=== PATIENT | female | born 1995 | race Caucasian/White ===

== ENCOUNTER 2022-01-31 01:19 | Emergency (ER) | payer SELFPAY ==
[~2022-01-31] VITALS: Ht 160 cm; Wt 90.3 kg
[2022-01-31 01:33] VITALS: BP 125/90
--- NOTE | 2022-01-31 02:51 | NUR ---
PATIENT LEFT WITHOUT BEING SEEN BY DR. Argueta. NO FURTHER CARE PROVIDED FOR PATIENT.
== END 2022-01-31 02:51 | disposition left against medical advice (07) ==
LOC: MED 01:19
DX: R10.9 Unspecified abdominal pain (principal); Z53.21 Procedure and treatment not carried out due to patient leaving prior to being seen by health care provider

== ENCOUNTER 2023-06-14 18:52 | Emergency (ER) | payer MEDICAID ==
[~2023-06-14] VITALS: Ht 170.2 cm; Wt 89.8 kg
[2023-06-14 19:09] VITALS: BP 125/71; PULSE 82; RESP 15; TEMP 98.1; O2SAT 98
[2023-06-14] MEDS ORDERED: ONDANSETRON 4 MG ODT PO ONE (19:50)
[2023-06-14] MEDS ORDERED: KETOROLAC 60 MG/2 ML VIAL IM ONE (19:50)
[2023-06-14] MEDS ORDERED: IBUP-2213 PO (20:29)
[2023-06-14] MEDS ORDERED: ONDA8TAB87 PO (20:29)
[2023-06-14 20:43] VITALS: BP 125/71; PULSE 82; RESP 15; TEMP 98.1; O2SAT 98
== END 2023-06-14 20:45 | disposition home or self-care (01) ==
LOC: MED 18:52
DX: S31.114A Laceration without foreign body of abdominal wall, left lower quadrant without penetration into peritoneal cavity, initial encounter (principal); R51.9 Headache, unspecified; W18.39XA Other fall on same level, initial encounter; Y92.89 Other specified places as the place of occurrence of the external cause; Y93.89 Activity, other specified; Y99.8 Other external cause status
CPT/HCPCS: 12001; 81025; 96372; 99283; J1885; Q0162

== ENCOUNTER 2023-07-04 12:39 | Emergency (ER) | payer MEDICAID ==
[~2023-07-04] VITALS: Ht 160 cm; Wt 91.7 kg
[~2023-07-04 12:39] MED LIST: IBUP-2213 PO; ONDA8TAB87 PO
[2023-07-04 13:06] VITALS: BP 119/61; PULSE 94; RESP 20; TEMP 98.4; O2SAT 98
[2023-07-04 13:46] LABS: APPEARANCE,URINE CLEAR (CLEAR); BILIRUBIN,URINE NEGATIVE (NEGATIVE); BLOOD, URINE NEGATIVE (NEGATIVE); COLOR,URINE YELLOW (YELLOW); LEUKOCYTE ESTERASE ,URINE 3+ (NEGATIVE); NITRITE, URINE NEGATIVE (NEGATIVE); PH,URINE 7.5 (5.0-9.0); PROTEIN,URINE NEGATIVE (NEGATIVE); UGLUCOSE NEGATIVE (NEGATIVE); UROBILINOGEN,URINE 0.2 EU/dL (0.2 - 1)
[2023-07-04 13:59] LABS: BACTERIA,URINE 10-30 (MOD) /HPF (None Seen); MUCUS,URINE None Seen /LPF (None Seen); RBC,URINE 0-5 /HPF (0-5); SQUAMOUS EPITHELIAL CELL,UR 0-3 (FEW) /LPF (0-3 (FEW)); TRICHOMONAS,URINE None Seen /HPF (None Seen); WHITE BLOOD CELL CASTS,URINE None Seen /LPF (None Seen); YEAST,URINE None Seen /HPF (None Seen)
[2023-07-04] MEDS ORDERED: ONDANSETRON 4 MG ODT PO ONE (14:55)
[2023-07-04] MEDS ORDERED: KETOROLAC 60 MG/2 ML VIAL IM ONE (14:55)
[2023-07-04] MEDS ORDERED: OMEP40EC23 PO (15:12)
[2023-07-04] MEDS ORDERED: ONDA8TAB87 PO (15:12)
[2023-07-04] MEDS ORDERED: IBUP-2213 PO (15:12)
[2023-07-04] MEDS ORDERED: CIPR500T4 PO (15:12)
== END 2023-07-04 15:38 | disposition home or self-care (01) ==
LOC: MED 12:39
DX: N39.0 Urinary tract infection, site not specified (principal); Z79.899 Other long term (current) drug therapy; Z90.49 Acquired absence of other specified parts of digestive tract
CPT/HCPCS: 81001; 81025; 87086; 96372; 99283; J1885; Q0162

== ENCOUNTER 2023-09-22 21:40 | Emergency (ER) | payer MEDICAID ==
[~2023-09-22] VITALS: Ht 160 cm; Wt 89.8 kg
[~2023-09-22 21:40] MED LIST changes: +CIPR500T4 PO; +OMEP40EC23 PO
[2023-09-22 23:02] VITALS: BP 145/83; PULSE 90; RESP 16; TEMP 97.8; O2SAT 99
[2023-09-23] MEDS: MECLIZINE 25 MG TAB PO ONE (02:25)
[2023-09-23] MEDS: ONDANSETRON 4 MG ODT PO ONE (02:25)
[2023-09-23] MEDS: TETRACAINE HCL/PF 0.5% OPTH 4 ML BTL OP ONE (04:07)
[2023-09-23] MEDS: FLUORESCEIN OPTH STRIP 1 MG OP ONE (04:07)
[2023-09-23 04:19] VITALS: BP 138/84; PULSE 87; RESP 16; TEMP 97.8; O2SAT 99
[2023-09-23] MEDS ORDERED: BACI-418 TP (04:19)
[2023-09-23] MEDS: BACITRACIN OINT 500 UNITS/GM PKT TP ONE (04:28)
== END 2023-09-23 04:30 | disposition home or self-care (01) ==
LOC: MED 21:40
DX: S01.81XA Laceration without foreign body of other part of head, initial encounter (principal); H53.8 Other visual disturbances; Z79.899 Other long term (current) drug therapy; W18.2XXA Fall in (into) shower or empty bathtub, initial encounter; Y93.89 Activity, other specified; Y92.89 Other specified places as the place of occurrence of the external cause; Y99.8 Other external cause status
CPT/HCPCS: 70450; 90471; 90715; 99285; J8597; Q0162

== ENCOUNTER 2023-10-29 00:50 | Emergency (ER) | payer MEDICAID ==
[~2023-10-29] VITALS: Ht 162.6 cm; Wt 92.1 kg
[~2023-10-29 00:50] MED LIST changes: +BACI-418 TP
[2023-10-29 00:58] VITALS: BP 113/88; PULSE 91; RESP 18; TEMP 99; O2SAT 99
[2023-10-29 01:40] LABS: APPEARANCE,URINE CLEAR (CLEAR); BILIRUBIN,URINE NEGATIVE (NEGATIVE); BLOOD, URINE NEGATIVE (NEGATIVE); COLOR,URINE YELLOW (YELLOW); LEUKOCYTE ESTERASE ,URINE 1+ (NEGATIVE); NITRITE, URINE NEGATIVE (NEGATIVE); PROTEIN,URINE NEGATIVE (NEGATIVE); UGLUCOSE NEGATIVE (NEGATIVE); UROBILINOGEN,URINE 0.2 EU/dL (0.2 - 1)
[2023-10-29 01:42] LABS: BASOPHILS # (AUTO) 0.1 K/uL (0.00-0.22); BASOPHILS % (AUTO) 0.5 % (0.0-2.0); EOSINOPHILS # (AUTO) 0.1 K/uL (0-0.4); EOSINOPHILS % (AUTO) 1.4 % (0.0-4.0); HEMATOCRIT 35.3 % (36-48); HEMOGLOBIN 11.7 g/dL (12.0-16.0); LYMPHOCYTES # (AUTO) 2.2 K/uL (2.5-16.5); LYMPHOCYTES % (AUTO) 22.5 % (20.5-51.1); MEAN CORPUSCULAR HEMOGLOBIN 25 pg (27-31); MEAN CORPUSCULAR HGB CONC 33 g/dL (33-37); MEAN CORPUSCULAR VOLUME 75.6 fL (80-94); MONOCYTES # (AUTO) 0.8 K/uL (0.8-1.0); MONOCYTES % (AUTO) 7.7 % (1.7-9.3); NEUTROPHILS # (AUTO) 6.8 K/uL (1.8-7.7); NEUTROPHILS % (AUTO) 67.9 % (42.2-75.2); PLATELET COUNT (AUTO) 247 K/uL (140-450); RED BLOOD CELL COUNT(AUTO) 4.67 MIL/uL (4.20-5.40); RED CELL DISTRIBUTION WIDTH 16.3 % (11.6-13.7)
[2023-10-29 01:51] LABS: ANION GAP 11.7 (8-16); CALCIUM 9.1 mg/dL (8.5-10.1); CARBON DIOXIDE 27.1 mmol/L (21-32); CREATININE 0.8 mg/dL (0.6-1.3); POTASSIUM 3.8 mmol/L (3.5-5.1)
[2023-10-29 01:52] LABS: BACTERIA,URINE 10-30 (MOD) /HPF (None Seen); MUCUS,URINE 1+ /LPF (None Seen); RBC,URINE 0-5 /HPF (0-5); SQUAMOUS EPITHELIAL CELL,UR 0-3 (FEW) /LPF (0-3 (FEW))
[2023-10-29 02:00] LABS: ALBUMIN 3.7 g/dL (3.4-5.0); BILIRUBIN,DIRECT 0.1 mg/dL (0.0-0.3); TOTAL BILIRUBIN 0.2 mg/dL (0.0-1.0); TOTAL PROTEIN, SERUM 7.3 g/dL (6.4-8.2)
[2023-10-29] MEDS: KETOROLAC 30 MG/ML VIAL IM ONE (03:26)
[2023-10-29] MEDS ORDERED: CEPH-588 PO (03:57)
[2023-10-29] MEDS ORDERED: BEN10 PO (03:57)
[2023-10-29 04:23] VITALS: O2SAT 99
== END 2023-10-29 04:08 | disposition home or self-care (01) ==
LOC: MED 00:50
DX: N39.0 Urinary tract infection, site not specified (principal); R11.10 Vomiting, unspecified; R19.7 Diarrhea, unspecified; Z90.49 Acquired absence of other specified parts of digestive tract; Z79.1 Long term (current) use of non-steroidal anti-inflammatories (NSAID); Z79.899 Other long term (current) drug therapy
CPT/HCPCS: 36415; 80048; 80076; 81001; 81025; 83690; 85025; 87086; 87186; 96372; 99283; J1885

== ENCOUNTER 2024-01-26 04:35 | Emergency (ER) | payer MEDICAID, OTHER ==
[~2024-01-26] VITALS: Ht 160 cm; Wt 81.6 kg
[~2024-01-26 04:35] MED LIST changes: +BEN10 PO; +CEPH-588 PO
[2024-01-26 04:49] VITALS: BP 121/87; PULSE 83; RESP 18; TEMP 98.6; O2SAT 98
[2024-01-26 05:05] VITALS: O2SAT 98
[2024-01-26] MEDS: KETOROLAC 60 MG/2 ML VIAL IM ONE (05:15)
[2024-01-26 05:45] LABS: APPEARANCE,URINE CLEAR (CLEAR); BILIRUBIN,URINE NEGATIVE (NEGATIVE); BLOOD, URINE 3+ (NEGATIVE); COLOR,URINE YELLOW (YELLOW); LEUKOCYTE ESTERASE ,URINE TRACE (NEGATIVE); NITRITE, URINE NEGATIVE (NEGATIVE); PH,URINE 6.5 (5.0-9.0); PROTEIN,URINE NEGATIVE (NEGATIVE); UGLUCOSE NEGATIVE (NEGATIVE); UROBILINOGEN,URINE 0.2 EU/dL (0.2 - 1)
[2024-01-26 05:51] LABS: BACTERIA,URINE 10-30 (MOD) /HPF (None Seen); MUCUS,URINE 1+ /LPF (None Seen); RBC,URINE TOO NUMEROUS TO COUN /HPF (0-5); SQUAMOUS EPITHELIAL CELL,UR 0-3 (FEW) /LPF (0-3 (FEW)); WBC,URINE 0-5 /HPF (0-5)
[2024-01-26] MEDS ORDERED: cefTRIAXone 1,000 MG in LIDOCAINE MPF 1% 2.1 ML IM ONE (05:55)
[2024-01-26] MEDS ORDERED: CIPR500T4 PO (05:57)
[2024-01-26] MEDS ORDERED: PHEN-1877 PO (05:58)
== END 2024-01-26 06:20 | disposition home or self-care (01) ==
LOC: MED 04:35
DX: R10.9 Unspecified abdominal pain (principal)
CPT/HCPCS: 81001; 81025; 87086; 96372; 99283; J1885

== ENCOUNTER 2024-04-08 01:44 | Emergency (ER) | payer OTHER ==
[~2024-04-08] VITALS: Ht 162.6 cm; Wt 88.5 kg
[~2024-04-08 01:44] MED LIST changes: +PHEN-1877 PO
[2024-04-08 01:46] VITALS: BP 144/104; PULSE 103; RESP 16; TEMP 98.4; O2SAT 98
[2024-04-08] MEDS: PROMETH/CODEINE 6.25-10MG/5ML 5 ML UDC PO ONE (02:28)
[2024-04-08 02:45] VITALS: PULSE 96; RESP 18; O2SAT 95
[2024-04-08] MEDS: ALBUTEROL SULFATE/IPRATROPIU 3 ML SOL IH ONE (02:45)
[2024-04-08] MEDS ORDERED: AZIT250T4 PO (03:01)
[2024-04-08] MEDS ORDERED: ALBU0.0912 IH (03:01)
[2024-04-08] MEDS ORDERED: ROBAC PO (03:01)
== END 2024-04-08 03:39 | disposition home or self-care (01) ==
LOC: MED 01:44
DX: J20.9 Acute bronchitis, unspecified (principal); Z79.899 Other long term (current) drug therapy; Z88.6 Allergy status to analgesic agent
CPT/HCPCS: 71045; 94640; 99283; Q0092